=== PATIENT | male | born 1960 | race Caucasian/White ===

== ENCOUNTER 2024-10-05 10:00 | Emergency (ER) | payer OTHER, SELFPAY ==
[2024-10-05 10:17] VITALS: BP 141/87
--- NOTE | 2024-10-05 11:13 | EDRN ---
Ravinder JOE in room w/pt.
[2024-10-05] MEDS: TORADOL 30 MG IM (11:40)
[2024-10-05 11:41] VITALS: BMI 27.7
--- NOTE | 2024-10-05 11:46 | ED.GENMED ---
History of Present Illness
General
Chief Complaint: Back Pain
Source: patient and spouse
Exam Limitations: none
Time Seen by Provider: 10/05/24 11:07
Nursing documentation reviewed up to this point in time: agreed with
History of Present Illness
History of Present Illness:
64-year-old male with past history of hypertension hyperlipidemia, depression presenting to the emergency department today with concerns of back discomfort. He claims that he is had significant back discomfort for at least 18 years has had multiple
surgeries multiple cervical surgeries and a lumbar surgery. 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 Has been following with pain
management doctor and primary care doctor but without significant relief. He he has been taking amitriptyline as well as tramadol as well as Cymbalta without relief. He claims that he is fed up with the discomfort at this point has thoughts of
harming himself due to the ongoing suffering. He denies any specific numbness weakness changes in bowel movements or bladder.
Review of Systems
Review of Systems
Allergies reviewed?: Yes
All Other Systems: ROS reviewed and negative except as documented in HPI and ROS
Phy Exam
Physical Exam
Physical Exam:
GENERAL: Alert , in no apparent distress
EYE: pupils equal and reactive
NECK: Supple, no significant adenopathy.
ENT: o/p clr, mmm.
CARDIAC: Regular rate and rhythm .
LUNGS: Clear breath sounds bilaterally, no acute respiratory distress, no wheezes/rales/rhonchi
ABDOMEN: Soft, without focal tenderness, no r/g, no cvat
NEUROLOGICAL: Alert and oriented, no focal neuro deficits
SKIN: Warm and dry, skin intact.
MUSCULOSKELETAL: Mildly reproducible discomfort to left lumbar region without redness or warmth no midline pain no edema, well perfused.
PSYCH: Normal and appropriate interaction.
Course
Orders/Labs/Results
Orders:
Orders
10/05/24 11:22
Ketorolac [Toradol] 30 mg IM NOW STA
Oxycodone/Acetaminophen [Percocet 5/325] 2 tablet PO NOW STA
10/05/24 11:25
Crisis Consult Urgent
Reason for Consult: suicidal, plan with gun
10/05/24 11:45
1:1 Observation - Suicide/ Violent Behavior As Directed
10/05/24 16:52
Acetaminophen [Tylenol] 1,000 mg PO NOW STA
Ketorolac [Toradol] 15 mg IM NOW STA
Vital Signs
Initial and Last Documented VS:
Initial Vital Signs
Temp Pulse Resp BP Pulse Ox
98.0 F 77 16 141/87 98
10/05/24 10:17 10/05/24 10:17 10/05/24 10:17 10/05/24 10:17 10/05/24 10:17
Last Documented Vital Signs
Temp Pulse Resp BP Pulse Ox
98.5 F 82 20 136/71 99
10/05/24 11:57 10/05/24 11:57 10/05/24 11:57 10/05/24 11:57 10/05/24 11:57
MDM/Problems Addressed
MDM/Problems Addressed:
64-year-old male presenting to the emergency department today for concerns of ongoing back discomfort. Patient claims that he is had similar discomfort for many years and is becoming increasingly depressed due to this. He is thoughts of harming
himself and mentioned that he wanted to kill himself to his primary care doctor today and was sent to the ER for assessment of this. Otherwise here vital signs are normal patient in no distress. Normal neurologic evaluation no evidence of cauda
equina or spinal epidural abscess. He was given a shot of Toradol to help with discomfort and was placed on one-to-one for crisis consultation.
Crisis saw the patient and feel he does need placement. They were out of on a psychiatric room. Stable throughout ER stay. Improvement of symptoms after receiving Toradol here.
*Critical Care Note
Total Time (30-74mins, 75-104mins- exclusive of procedures): Not Applicable
ED Attending Note
-
Portions of this chart may have been created with voice recognition software.� Occasional wrong word or��sound alike� substitutions may have occurred due to the inherent limitations of voice recognition software.
Discharge Plan
Departure
Patient Disposition: Psych Facility
Date of Disposition: 10/05/24
Time of Disposition: 16:56
Patient with high blood pressure during this ER visit?: No
Condition: Good
Covid-19: Not Applicable
Discharge Problem:
Suicidal ideation, Back pain
Instructions: Low Back Pain (DC)
Referrals:
Rodri Sweeney MD [Family Provider] -
Casey Weller MD [Active] - Follow up in 5-7 days
Marty Ahuja DO [Active] - Follow up in 10 days
Interventions
Interventions:
*Risk Screen - Suicide Last Done: 10/05/24 11:43
*General Assessment Last Done: 10/05/24 11:42
*Neglect/Abuse Screening Last Done: 10/05/24 11:43
ED- Fall Risk Assessment Last Done: 10/05/24 11:57
*ED COVID-19 Vaccine History Last Done: 10/05/24 11:42
ED-Musculoskeletal Assessment Last Done: 10/05/24 11:43
Discharge Date and Time
Print Language: ROMANSH
--- NOTE | 2024-10-05 11:53 | EDRN ---
Pt was asked suicide questions and has high risk for suicide so [employer] production control pegboard clerk called and pt moved to Crisis room 2.
[2024-10-05 11:57] VITALS: BP 136/71
--- NOTE | 2024-10-05 11:58 | EDRN ---
Pt moved to Crisis 2 for HIGH suicide risk r/t severe chronic back pain. convict guard given report and triage sheet and report given to Raven ESPINOZA at this time.
--- NOTE | 2024-10-05 15:20 | EDRN ---
per crisis staff the pt will be going to the [facility] at 1700, crisis notified the pt and the pts
== END 2024-10-05 18:05 ==
LOC: EMR 10:00
PROVIDERS: EMERGENCY PHYSICIAN Emergency Medicine; FAMILY PHYSICIAN Family Medicine
DX: R45.851 Suicidal ideations (principal); F32.A Depression, unspecified; M54.9 Dorsalgia, unspecified; E78.5 Hyperlipidemia, unspecified; I10 Essential (primary) hypertension; Z79.899 Other long term (current) drug therapy
CPT/HCPCS: 96372; 99285